=== PATIENT | female | born 1995 | race Native Hawaiian/Other Pacific Islander ===

== ENCOUNTER 2021-02-07 14:50 | Inpatient (IN) | payer MEDICAID ==
[~2021-02-07] VITALS: Ht 157.5 cm; Wt 60.3 kg
[2021-02-07] MEDS ORDERED: diphenhydrAMINE 50 MG/1 ML VIAL IV ONE (15:00)
[2021-02-07] MEDS ORDERED: ACETAMINOPHEN 325 MG TABLET PO ONE (15:00)
--- NOTE | 2021-02-07 15:00 | NUR ---
ER medicine orders clarified: Patient is for IV Benadryl & po Tylenol before the blood transfusion per Dr Marte
[2021-02-07 15:25] LABS: MEAN CORPUSCULAR HEMOGLOBIN 26.8 uug (24.7-32.8); MEAN CORPUSCULAR VOLUME 83.9 fL (75.5-95.3); PLATELET COUNT (AUTO) 275 K/uL (179-408)
[2021-02-07 15:28] LABS: CREATININE 0.8 mg/dL (0.6-1.3); POTASSIUM 3.6 mmol/L (3.5-5.1)
[2021-02-07 15:34] LABS: BILIRUBIN,TOTAL 1.5 mg/dL (0.2-1.0); TOTAL PROTEIN, SERUM 8.4 g/dL (6.4-8.2)
[2021-02-07 16:35] LABS: EOSINOPHILS % (MANUAL) 2 % (0-8); LYMPHOCYTES % (MANUAL) 29 % (20-40); MONOCYTES % (MANUAL) 7 % (2-10); NEUTROPHILS % (MANUAL) 62 % (42-75)
[2021-02-07] MEDS ORDERED: ONDANSETRON 4 MG/2 ML VIAL IV PRN (17:00)
[2021-02-07] MEDS ORDERED: ACETAMINOPHEN 325 MG TABLET PO PRN (17:00)
[2021-02-07] MEDS ORDERED: MAGNESIUM HYDROXIDE 30 ML LIQUID UDC PO PRN (17:00)
[2021-02-07] MEDS ORDERED: Z GUARD REMEDY PASTE 57 GM TUBE TOP PRN (17:00)
--- NOTE | 2021-02-07 17:42 | NUR ---
[facility] hospitalist (Edna)[email or web address]
--- NOTE | 2021-02-07 17:50 | NUR ---
Dr Bishop notified re: blood will be ready tomorrow per [facility] staff Corey.
[2021-02-07] MEDS ORDERED: FOLI1TAB94 PO (19:01)
[2021-02-07] MEDS ORDERED: PRED2.5T PO (19:01)
--- NOTE | 2021-02-07 19:16 | NUR ---
PATIENT ADMITTED FROM ER FOR ANEMIA, NO ACUTE DISTRESS NOTED, PATIENT IS ALERT, ORIENTED X4, AMBULATORY, STEADY GAIT.
[2021-02-07 20:00] VITALS: BP 109/72
[2021-02-08] VITALS (11 sets, daily range): BP systolic 105–132; BP diastolic 50–76
[2021-02-08 06:39] LABS: MEAN CORPUSCULAR HEMOGLOBIN 26.1 uug (24.7-32.8); MEAN CORPUSCULAR VOLUME 84.8 fL (75.5-95.3); PLATELET COUNT (AUTO) 219 K/uL (179-408)
[2021-02-08 07:00] LABS: ALANINE AMINOTRANSFERASE 34 U/L (14-59); ALKALINE PHOSPHATASE 47 U/L (50-136); ASPARTATE AMINOTRANSFERASE 182 U/L (15-37); CARBON DIOXIDE 25 mmol/L (21-32); CHLORIDE 103 mmol/L (98-107); CREATININE 0.5 mg/dL (0.6-1.3); GLUCOSE 81 mg/dL (74-106); POTASSIUM 3.3 mmol/L (3.5-5.1); TOTAL PROTEIN, SERUM 7.3 g/dL (6.4-8.2); UREA NITROGEN, BLOOD 9 mg/dL (7-18)
--- NOTE | 2021-02-08 07:00 | NUR ---
Received pt awake on bed upon initial rounds. No respiratory distress noted, on room air. She is alert and oriented, able to make needs known, BRP. IV on R AC remains patent and intact. Denies pain and discomfort. All needs attended. Call light placed within reach. Frequent visual checks done. Will endorse to next shift for continuity of care.
[2021-02-08 07:30] LABS: HEMATOCRIT 18.1 % (31.2-41.9)
[2021-02-08] MEDS ORDERED: POTASSIUM CHLORIDE 20 MEQ TAB.PRT.SR PO ONE (10:00)
[2021-02-08] MEDS ORDERED: predniSONE 2.5 MG TABLET PO SCH (11:15)
[2021-02-08] MEDS: FOLIC ACID 1 MG TABLET PO SCH (11:30)
[2021-02-08] MEDS: predniSONE 5 MG TABLET PO SCH ×2 (11:31→20:19)
[2021-02-08 17:20] LABS: LYMPHOCYTES % (MANUAL) 41 % (20-40); MONOCYTES % (MANUAL) 8 % (2-10); NEUTROPHILS % (MANUAL) 51 % (42-75)
--- NOTE | 2021-02-08 20:57 | NUR ---
Received pt awake on bed upon with blood transfusion ongoing. Father at bedside. No respiratory distress noted, on room air. Vital signs WNL. No allergic reaction noted. She is alert and oriented, able to make needs known. IV on R AC remains patent and intact. Denies pain and discomfort. All needs attended. Call light placed within reach. Frequent visual checks done. Will endorse to next shift for continuity of care.
[2021-02-09] VITALS (9 sets, daily range): BP systolic 107–124; BP diastolic 52–73
--- NOTE | 2021-02-09 06:28 | NUR ---
First unit of BT finished, no reaction noted. Vital signs WNL. Second unit of BT also started and finished with no allergic reaction. Pt is alert and oriented able to make needs known. BRP with assistance. Denies pain and discomfort at this time. All needs attended. Call light placed within reach. Frequent visual checks done. Will endorse to next shift for continuity of care.
[2021-02-09 06:51] LABS: CREATININE 0.6 mg/dL (0.6-1.3); POTASSIUM 3.5 mmol/L (3.5-5.1)
[2021-02-09 08:03] LABS: HEMATOCRIT 30.8 % (31.2-41.9); MEAN CORPUSCULAR HEMOGLOBIN 28.5 uug (24.7-32.8); PLATELET COUNT (AUTO) 203 K/uL (179-408)
[2021-02-09] MEDS: predniSONE 5 MG TABLET PO SCH (09:52)
[2021-02-09] MEDS: FOLIC ACID 1 MG TABLET PO SCH (09:52)
--- NOTE | 2021-02-09 16:30 | NUR ---
Pt is a/o x 4, stable on room air. HGB from this am resulted 9.9. Pt is ambulatory. Pt discharged at 1620 via private car, picked up by her father. All personal belongings given to pt, including from safe downstairs. Belongings witnessed and signed when returned. Pt is in no acute distress, does not complain of weakness, dizziness, or pain. All discharge education provided and explained. She was wheeled down to private car.
== END 2021-02-09 16:20 | disposition home or self-care (01) | DRG 660 ==
LOC: ER 14:50 → TELE3 18:05 → MEDSURG3 02-08 09:30
PROVIDERS: ADMIT Internal Medicine; ATTEND Internal Medicine
PROC: 30233N1 Transfusion of Nonautologous Red Blood Cells into Peripheral Vein, Percutaneous Approach (ICD-10-PCS; principal; 2021-02-08)
DX: D59.5 Paroxysmal nocturnal hemoglobinuria [Marchiafava-Micheli] (principal); R00.0 Tachycardia, unspecified; D63.8 Anemia in other chronic diseases classified elsewhere; D59.4 Other nonautoimmune hemolytic anemias; Z20.822 Contact with and (suspected) exposure to COVID-19
CPT/HCPCS: 36415; 70030-TC; 71045; 85025; 85610; 86850; 86870; 86900; 86901; 86920; 93005; A4663; G0378; J7040; J7512; P9016

== ENCOUNTER 2021-03-18 21:19 | Emergency (ER) | payer MEDICAID ==
[~2021-03-18] VITALS: Ht 157.5 cm; Wt 60.3 kg
[~2021-03-18 21:19] MED LIST: FOLI1TAB94 PO; PRED2.5T PO
--- NOTE | 2021-03-18 21:30 | NUR ---
NO BEDS AVAILABLER IN THE ER AT THIS TIME. PLACED BACK IN WAITING ROOM.
--- NOTE | 2021-03-18 22:18 | NUR ---
PATIENT PLACED IN ROOM 3.
[2021-03-18 22:45] LABS: HEMATOCRIT 21.3 % (31.2-41.9); MEAN CORPUSCULAR HEMOGLOBIN 28.5 uug (24.7-32.8); MEAN CORPUSCULAR VOLUME 85.7 fL (75.5-95.3); PLATELET COUNT (AUTO) 177 K/uL (179-408)
[2021-03-18] MEDS ORDERED: IV NS 1000 ML 1,000 ML IV ONE (22:45)
[2021-03-18 22:51] LABS: CREATININE 0.7 mg/dL (0.6-1.3); POTASSIUM 3.5 mmol/L (3.5-5.1)
[2021-03-18] MEDS ORDERED: OXYC-128 PO (23:12)
--- NOTE | 2021-03-18 23:30 | NUR ---
IV removed. Catheter intact and site benign. Pressure and 4x4 gauze applied to site. No bleeding noted.
--- NOTE | 2021-03-18 23:36 | NUR ---
Patient discharged to home in stable condition. Written and verbal after care instructions given. Patient verbalizes understanding of instructions. Stressed follow up or return to ER for worsening s/s.
[2021-03-18 23:37] VITALS: BP 128/78
== END 2021-03-18 23:38 | disposition home or self-care (01) ==
LOC: ER 21:24
DX: U07.1 COVID-19 (principal); D59.5 Paroxysmal nocturnal hemoglobinuria [Marchiafava-Micheli]; D63.8 Anemia in other chronic diseases classified elsewhere; R00.0 Tachycardia, unspecified; R94.31 Abnormal electrocardiogram [ECG] [EKG]
CPT/HCPCS: 36415; 85025; 93005; A4663; J7030

== ENCOUNTER 2022-03-10 15:29 | Emergency (ER) | payer MEDICAID ==
[~2022-03-10] VITALS: Ht 160 cm; Wt 59.0 kg
[~2022-03-10 15:29] MED LIST changes: +OXYC-128 PO; -PRED2.5T PO
--- NOTE | 2022-03-10 15:47 | NUR ---
PT IS IN ROOM #1A. DR CAST EVALUATED THE PT.
[2022-03-10] MEDS ORDERED: MENT1LOZ19 PO (18:10)
== END 2022-03-10 18:54 | disposition home or self-care (01) ==
LOC: ER 15:29
DX: J02.8 Acute pharyngitis due to other specified organisms (principal); B97.89 Other viral agents as the cause of diseases classified elsewhere; Z20.822 Contact with and (suspected) exposure to COVID-19
CPT/HCPCS: 86403; 87070; A4663